=== PATIENT | male | born 1970 | race Caucasian/White ===

== ENCOUNTER → 2019-04-07 10:41 | Outpatient (CLI) | payer BC, SELFPAY ==
[2019-04-07 12:06] LABS: Alanine Aminotransferase 71 U/L (12-78); Albumin Level 4.2 gm/dL (3.4-5.0); Albumin/Globulin Ratio 1.1 (1.1-1.8); Alkaline Phosphatase 86 U/L (46-116); Anion Gap 11.6 mEq/L (5-15); Bilirubin,Total 0.6 mg/dL (0.2-1.0); Blood Urea Nitrogen 15 mg/dL (7-18); Calcium 9.4 mg/dL (8.5-10.1); Carbon Dioxide 31 mmol/L (21.0-32.0); Chloride 100 mmol/L (98-107); Creatinine,Serum 1.24 mg/dL (0.70-1.30); Estimated Glomerular Filt Rate 61 ml/min (>60); GFR (African American) 74 ML/MIN (>60); Globulin 3.8 gm/dl (1.3-3.2); Glucose 89 mg/dL (74-106); Sodium 138 mmol/L (136-145)
[2019-04-07 12:07] LABS: Aspartate Amino Transferase 114 U/L (15-37); Potassium 4.6 mmoL/L (3.5-5.1)
== END ==
PROVIDERS: Visit Provider Nurse Practitioner Family
DX: R79.89 Other specified abnormal findings of blood chemistry (principal); E78.5 Hyperlipidemia, unspecified; I10 Essential (primary) hypertension
CPT/HCPCS: 36415; 80053

== ENCOUNTER → 2019-07-21 08:36 | Outpatient (CLI) | payer BC, SELFPAY ==
[2019-07-21 11:02] LABS: Alanine Aminotransferase 39 U/L (12-78); Albumin Level 4.1 gm/dL (3.4-5.0); Albumin/Globulin Ratio 1.2 (1.1-1.8); Alkaline Phosphatase 74 U/L (46-116); Anion Gap 11.5 mEq/L (5-15); Aspartate Amino Transferase 25 U/L (15-37); Bilirubin,Total 0.9 mg/dL (0.2-1.0); Blood Urea Nitrogen 17 mg/dL (7-18); Calcium 9.2 mg/dL (8.5-10.1); Carbon Dioxide 28 mmol/L (21.0-32.0); Chloride 102 mmol/L (98-107); Cholesterol 205 mg/dL (140-200); Creatinine,Serum 1.29 mg/dL (0.70-1.30); Estimated Glomerular Filt Rate 59 ml/min (>60); GFR (African American) 71 ML/MIN (>60); Globulin 3.3 gm/dl (1.3-3.2); Glucose 106 mg/dL (74-106); HDL Cholesterol 41 mg/dL (27-67); LDL Cholesterol 142 mg/dL (0-130); Potassium 4.5 mmoL/L (3.5-5.1); Sodium 137 mmol/L (136-145); Total Protein,Serum 7.4 gm/dL (6.4-8.2); Triglycerides 109 mg/dL (30-200); VLDL Cholesterol 22 mg/dL (0-40)
== END ==
PROVIDERS: Visit Provider Nurse Practitioner Family
DX: Z00.00 Encounter for general adult medical examination without abnormal findings (principal); E78.5 Hyperlipidemia, unspecified; I10 Essential (primary) hypertension; R07.9 Chest pain, unspecified
CPT/HCPCS: 36415; 80053; 80061; 84443

== ENCOUNTER → 2021-12-02 14:49 | Outpatient (CLI) | payer BC, SELFPAY | PROVIDERS: Visit Provider Nurse Practitioner Family | DX: Z00.00 Encounter for general adult medical examination without abnormal findings (principal); I10 Essential (primary) hypertension; E78.5 Hyperlipidemia, unspecified ==

== ENCOUNTER → 2021-12-03 10:26 | Outpatient (CLI) | payer OTHER, SELFPAY ==
[2021-12-03 11:30] LABS: Chloride 100 mmol/L (98-107); Potassium 4.2 mmoL/L (3.5-5.1); Sodium 139 mmol/L (136-145)
[2021-12-03 11:32] LABS: Blood Urea Nitrogen 25 mg/dl (9-20); Estimated Glomerular Filt Rate 78 ml/min (>60); GFR (African American) 95 ML/MIN (>60)
[2021-12-03 11:33] LABS: Alanine Aminotransferase 54 U/L (12-78); Albumin Level 4.7 g/dl (3.5-5.0); Albumin/Globulin Ratio 1.7 (1.1-1.8); Alkaline Phosphatase 54 U/L (38-126); Anion Gap 15.2 mEq/L (5-15); Aspartate Amino Transferase 60 U/L (17-59); Bilirubin,Total 0.8 mg/dl (0.2-1.3); Calcium 9.4 mg/dl (8.4-10.2); Carbon Dioxide 28 mmol/L (22.0-30.0); Chol/HDL Ratio 3.8 (1-3.5); Cholesterol 159 mg/dl (140-200); Globulin 2.7 g/dL (1.3-3.2); Glucose 121 mg/dl (74-100); HDL Cholesterol 42 mg/dl (40-60); Total Protein,Serum 7.4 g/dl (6.3-8.2); Triglycerides 129 mg/dl (30-150); VLDL Cholesterol 26 mg/dL (0-40)
[2021-12-03 11:44] LABS: Direct LDL Cholesterol 86.25 mg/dL (100-129)
[2021-12-04 16:16] LABS: Hemoglobin A1C 5.9 % (4.0-6.0)
== END ==
PROVIDERS: Visit Provider Nurse Practitioner Family
DX: Z00.00 Encounter for general adult medical examination without abnormal findings (principal); I10 Essential (primary) hypertension; E78.5 Hyperlipidemia, unspecified
CPT/HCPCS: 36415; 80053; 80061; 83036

== ENCOUNTER 2022-05-21 09:47 | Emergency (ER) | payer OTHER, SELFPAY ==
--- NOTE | 2022-05-21 09:47 | PC.NURSE ---
pt ambulatory to ED room 7 with spouse at side for assistance, pt was unsteady on feet. Pt to stretcher without complications. EKG performed and hooked to monitor. IV placed. IGNACIA Herrera; IGNACIA Lea; MINI Cervantes at BS
--- NOTE | 2022-05-21 09:49 | ECG_ITS ---
APPROVED REPORT Exam: Resting ECG HR:114 bpm ECG Measurements Heart Rate 114 AXES HI 160 P 54 QRSd 89 QRS -89 QT 360 T 36 QTc 428 Conclusion SINUS TACHYCARDIA INDETERMINATE AXIS POSSIBLE RIGHT VENTRICULAR CONDUCTION DELAY [RSR (QR) IN V1/V2] ABNORMAL ECG UNCONFIRMED REPORT Electronically signed by : Yakov Vásquez MD 05/22/2022 17:32:41
[2022-05-21 09:52] VITALS: BP 149/94; PULSE 115; RESP 18; TEMP 36.9; O2SAT 99; BMI 28.4
--- NOTE | 2022-05-21 09:52 | XR_ITS ---
FINAL REPORT CLINICAL HISTORY: cp FINDINGS: A single portable view of the chest was obtained. The heart size and pulmonary vascularity are within normal limits. The mediastinum is within normal limits. No acute pulmonary abnormality is identified. The bony thorax is intact. IMPRESSION: No active cardiopulmonary disease. Reviewed, Interpreted and Dictated by Lobito Weiss III, MD Transcribed by Katie Mcknight Authenticated and [facility]
--- NOTE | 2022-05-21 09:53 | PC.NURSE ---
ER at speaking with patient and family
[2022-05-21 09:58] LABS: Basophils # 0.1 K/mm3 (0-0.2); Basophils % 0.4 % (0.1-2.0); Eosinophils # 0.2 K/mm3 (0.0-0.4); Eosinophils % 1.7 % (0.1-12.0); Hemoglobin 17.5 g/dL (14.1-18.0); Lymphocytes # 2.1 K/mm3 (0.7-4.5); Lymphocytes % 18.3 % (10-50); Mean Corpuscular HGB Conc 35.8 g/dL (31.8-35.4); Mean Corpuscular Hemoglobin 31.2 pg (27.0-31.2); Mean Corpuscular Volume 87.2 fl (80-94); Mean Platelet Volume 8.1 fl (7.4-10.4); Monocytes # 0.8 K/mm3 (0.1-1.0); Monocytes % 6.9 % (1.7-9.3); Neutrophils # 8.2 K/mm3 (1.8-7.8); Neutrophils % 72.6 % (37.0-80.0); Platelet Count 224 K/mm3 (142-424); Red Blood Count 5.62 M/mm3 (4.60-6.20); Red Cell Distribution Width 12.3 % (11.5-17.5); White Blood Count 11.3 K/mm3 (4.8-10.8)
--- NOTE | 2022-05-21 09:58 | HMH.EDGENADL ---
ED Disposition Clinical Impression: Nonspecific chest pain Disposition: Home, Self-Care Condition on Discharge: Good Additional Instructions: follow up cardiology tomorrow, return here for worse Prescriptions: Nitroglycerin [Nitrostat 0.4mg SL Tablet] 0.4 mg SL Q5MINP PRN #10 tab PRN Reason: Chest Pain Transmission Status: Pending to [facility] #[id number] Referrals: Provider,Referral, [Referring] - - Critical Care Critical Care Time: No Attestation: On 05/21/22, the high probability of a clinically significant, sudden or life threatening deterioration of the following system(s) required my full and direct attention, intervention and personal management. The time I documented below is in addition to time spent performing reported procedures but includes the following listed in this critical care notation. Medical Decision Making - Medical Records Medical records reviewed: Yes: I reviewed the patient's medical records. - Ricardo Inquiry Pt receiving controlled substance: No Vital Signs: 05/21/22 09:52 05/21/22 10:17 Temperature 98.5 F Temperature Source Oral Pulse Rate 82 Pulse Rate [Left Radial] 115 H Respiratory Rate 18 Blood Pressure 156/95 H Blood Pressure [Right Arm] 149/94 H Blood Pressure Mean 117 Blood Pressure Mean [Right Arm] 112 02 Sat by Pulse Oximetry 99 99 Oxygen Delivery Method Room Air - Lab Data Lab Results 05/21/22 09:12: WBC 11.3 H, RBC 5.62, Hgb 17.5, Hct 49.0, MCV 87.2, MCH 31.2, MCHC 35.8 H, RDW 12.3, Plt Count 224, MPV 8.1, Neut % (Auto) 72.6, Lymph % (Auto) 18.3, Borden % (Auto) 6.9, Eos % (Auto) 1.7, Baso % (Auto) 0.4, Neut # (Auto) 8.2 H, Lymph # (Auto) 2.1, Borden # (Auto) 0.8, Eos # (Auto) 0.2, Baso # (Auto) 0.1 05/21/22 09:12: Sodium 138, Potassium 4.0, Chloride 105, Carbon Dioxide 24, Anion Gap 13.0, BUN 18, Creatinine 1.20, Estimated Creat Clear 89, Estimated GFR 63, Est GFR ( Amer) 76, Glucose 126 H, Calcium 10.3 H, Total Bilirubin 1.0, AST 33, ALT 28, Alkaline Phosphatase 75, Troponin I < 0.01, Total Protein 8.1, Albumin 5.0, Globulin 3.1, Albumin/Globulin Ratio 1.6 05/21/22 09:53: POC Glucose 110 Result diagrams: 05/21/22 09:12 05/21/22 09:12 Orders (Tests/Meds): ED MEDICATIONS Generic Name Dose Route Start Last Admin Trade Name Freq PRN Reason Stop Dose Admin Sodium Chloride 1,000 mls @ 999 mls/hr 05/21/22 10:00 05/21/22 10:09 Sod Chlor 0.9% 1000ml Bag IV 05/21/22 11:00 999 mls/hr .Q1H1M ML Administration Sodium Chloride 10 ml 05/21/22 10:03 Sodium Chloride 0.9% 10ml Vial IV 06/20/22 10:02 NEEDED PRN to Dilute Lorazepam inj Discontinued Medications Generic Name Dose Route Start Last Admin Trade Name Freq PRN Reason Stop Dose Admin Aspirin 324 mg 05/21/22 09:52 05/21/22 10:10 Aspirin 81mg Chewable Tablet PO 05/21/22 09:53 324 mg ONCE ONE Administration Lorazepam 0.5 mg 05/21/22 10:03 05/21/22 10:09 Lorazepam 2mg/Ml Vial IV 05/21/22 10:04 0.5 mg ONCE ONE Administration ORDERS Category Date Time Status CT head/brain wo con Stat Cat Scan 05/21/22 09:59 Taken XR chest portable Stat Exams 05/21/22 09:52 Taken Trop I [Troponin I] Stat Lab 05/21/22 11:15 Ordered EKG Request [ECG Request by /Marietta] Stat Y 05/21/22 10:50 Ordered - ECG Data Tracing #1 I reviewed this ECG and interpreted as documented below: ECG initial impression date: 05/21/22 (ekg by me nsr, qrs narrow, no st elev) - Reevaluation(s) Time: 10:57 (reeval, asking to go home, symptoms rsolved, discussed with card sPA by phone pt agreed to f/u in office tomorrow if sanket free and neg trop x2) General Adult HPI - General Chief complaint: Anxiety Stated complaint: CP Time Seen by Provider: 05/21/22 09:58 Mode of Arrival: Ambulatory Limitations: No Limitations Description of Symptoms (Recalled from ER Triage Doc. by RN): pt to ed c/o left sided numbness and tingling. pt states he waoke up
--- NOTE | 2022-05-21 09:59 | CT_ITS ---
FINAL REPORT CLINICAL HISTORY: tremulous, weight loss, confusion FINDINGS: Axial images of the head were obtained without contrast. Coronal reformatted images were also obtained.This study was performed with techniques to keep radiation doses as low as reasonably achievable (ALARA). Individualized dose reduction techniques using automated exposure control or adjustment of mA and/or kV according to the patient''s size were employed. There is no evidence of intracranial hemorrhage or mass. The ventricular size is within normal limits. There is no evidence of shift of the midline structures. No abnormal extra axial fluid collection is identified. No skull abnormality is seen on the bone window images. IMPRESSION: No acute intracranial abnormality. Reviewed, Interpreted and Dictated by Lobito Weiss III, MD Transcribed by Katie Mcknight Authenticated and [facility]
[2022-05-21 10:01] LABS: POC Glucose,Bedside 110 (70-110)
--- NOTE | 2022-05-21 10:04 | PC.NURSE ---
pt to CT with operating room technologist by yobani
[2022-05-21 10:05] LABS: Chloride 105 mmol/L (98-107)
[2022-05-21 10:06] LABS: Sodium 138 mmol/L (136-145)
[2022-05-21 10:08] LABS: Alanine Aminotransferase 28 U/L (12-78); Aspartate Amino Transferase 33 U/L (17-59); Blood Urea Nitrogen 18 mg/dl (9-20); Creatinine Clearance Estimated 89 mL/min (50-200); Estimated Glomerular Filt Rate 63 ml/min (>60); GFR (African American) 76 ML/MIN (>60)
[2022-05-21 10:09] LABS: Albumin/Globulin Ratio 1.6 (1.1-1.8); Alkaline Phosphatase 75 U/L (38-126); Calcium 10.3 mg/dl (8.4-10.2); Carbon Dioxide 24 mmol/L (22.0-30.0); Globulin 3.1 g/dL (1.3-3.2); Glucose 126 mg/dl (74-100); Total Protein,Serum 8.1 g/dl (6.3-8.2)
[2022-05-21 10:17] VITALS: BP 156/95; PULSE 82; O2SAT 99
[2022-05-21 10:21] LABS: Troponin I < 0.01 ng/ml (0.00-0.034)
--- NOTE | 2022-05-21 10:30 | PC.NURSE ---
pt states ativan helped with his anxiety. feeling improved. family at bedside
--- NOTE | 2022-05-21 10:42 | PC.NURSE ---
ER at speaking with patient; family at BS
--- NOTE | 2022-05-21 10:49 | ECG_ITS ---
APPROVED REPORT Exam: Resting ECG HR:70 bpm ECG Measurements Heart Rate 70 AXES VT 163 P 51 QRSd 109 QRS -16 QT 396 T 30 QTc 416 Conclusion SINUS RHYTHM INDETERMINATE AXIS NORMAL ECG UNCONFIRMED REPORT Electronically signed by : Yakov Vásquez MD 05/22/2022 17:32:31
--- NOTE | 2022-05-21 10:50 | PC.NURSE ---
Dr. Fraser speaking with EMMANUEL Tristan at this time
[2022-05-21 10:51] VITALS: BP 109/71; PULSE 75; RESP 17; O2SAT 96
[2022-05-21 11:17] VITALS: BP 113/72; PULSE 69; RESP 17; O2SAT 97
--- NOTE | 2022-05-21 11:30 | PC.NURSE ---
pt resting family at bedside offers no c/o at present
[2022-05-21 11:37] LABS: Troponin I < 0.01 ng/ml (0.00-0.034)
[2022-05-21 11:58] VITALS: BP 118/60; PULSE 64; RESP 17; TEMP 36.9; O2SAT 98
== END 2022-05-21 11:59 | disposition home or self-care (01) ==
PROVIDERS: Emergency Provider Emergency Medicine; PCP Nurse Practitioner Family
DX: R07.9 Chest pain, unspecified (principal)
CPT/HCPCS: 70450; 71045; 80053; 82962; 84484; 85025; 93005; 96365; 96375; 99284

== ENCOUNTER 2022-09-02 17:47 | Emergency (ER) | payer OTHER, SELFPAY ==
--- NOTE | 2022-09-02 17:45 | ECG_ITS ---
APPROVED REPORT Exam: Resting ECG HR:88 bpm ECG Measurements Heart Rate 88 AXES NE 176 P 48 QRSd 96 QRS -35 QT 350 T 36 QTc 395 Conclusion SINUS RHYTHM LEFT AXIS DEVIATION [QRS AXIS < -30] LOW QRS VOLTAGE IN PRECORDIAL LEADS [QRS DEFLECTION < 1.0 mV IN CHEST LEADS] PATTERN CONSISTENT WITH PULMONARY DISEASE INCOMPLETE RIGHT BUNDLE BRANCH BLOCK [90+ ms QRS DURATION, TERMINAL R IN V1/V2, 40+ ms S IN I/aVL/V4/V5/V6] ABNORMAL ECG UNCONFIRMED REPORT Electronically signed by : Yakov Vásquez MD 09/05/2022 17:44:35
[2022-09-02 17:49] VITALS: BP 124/84; PULSE 79; RESP 18; TEMP 36.7; O2SAT 96; BMI 27.2
--- NOTE | 2022-09-02 17:52 | HMH.EDCP ---
Discharge Plan Disposition Chief Complaint: Chest Pain Prescriptions Prescriptions: No Action nitroglycerin 0.4 MG tablet, sublingual 0.4 mg SL Q5MINP PRN (Reason: Chest Pain) Qty: 10 0RF Rx Instructions: 1 x sublingual every 5 min x3 prn cp losartan 50 mg tablet 50 mg PO DAILY Label Comments: TAKE 1 TABLET BY MOUTH EVERY DAY amlodipine 10 mg tablet 10 mg PO DAILY Label Comments: TAKE 1 TABLET BY MOUTH EVERY DAY rosuvastatin 10 mg tablet 10 mg PO DAILY Label Comments: TAKE 1 TABLET BY MOUTH EVERY DAY Referrals Follow up/Referrals: Provider,Referral, MD [Referring] - See instructions Activity Restrictions/Add. Instructions Additional Instructions/Restrictions: Follow-up with your primary care doctor as scheduled. I highly recommend that you follow-up with a textile machinery sales representative within the next week. Today your lab results did not show any evidence of heart attack. However, I cannot tell you that your heart is healthy. Plasterer Apprentice may want to do a stress test on you to determine the health of your heart. Return to the emergency department immediately if you feel worse in any way. Take all medications as prescribed. Clinical Impressions Clinical Impression: Nonspecific chest pain Instructions Patient Instructions: DI for Atypical Chest Pain Discharge ED Provider: Darryl Moon Chest Pain HPI General Chief Complaint: Chest Pain Stated Complaint: Chest Pain Time Seen by Provider: 09/02/22 17:52 Mode of Arrival: Ambulatory Source of Information: Patient Limitations: No Limitations History of Present Illness HPI narrative: The patient complains of left-sided chest pain that radiates up towards his shoulder for 3 weeks. He states that it got worse over the last 3 days. He denies any other complaints. SAMEER Score for Non-Stemi Age of Patient: 50-59 years old Heart Rate: 70-89 bpm Systolic Blood Pressure: 100-119 mmHg Serum Creatinine: 0.80-1.19 mg/dl CHF Killip Class: I-No CHF Other Risk Factors: None Non-Stemi Risk Score: 100 Related Data Home Medications Medication Instructions Recorded Confirmed amlodipine 10 mg tablet 10 mg PO DAILY Hypertension 09/02/22 09/02/22 losartan 50 mg tablet 50 mg PO DAILY Hypertension 09/02/22 09/02/22 rosuvastatin 10 mg tablet 10 mg PO DAILY High cholesterol 09/02/22 09/02/22 Previous Rx's Medication Instructions Recorded nitroglycerin 0.4 mg sublingual 0.4 mg sublingual Q5MINP PRN Chest 05/21/22 tablet Pain #10 tabs Allergies Allergy/AdvReac Type Severity Reaction Status Date / Time No Known Allergies Allergy Verified 05/21/22 10:00 [facility] Medical History (Updated 09/02/22 @ 19:35 by Darryl Moon MD) Hypertension after donor nephrectomy requiring medication Surgical History (Updated 09/02/22 @ 18:03 by Kamilla Alberts RN) Vasectomy status Social History (Updated 09/02/22 @ 17:59 by Kamilla Alberts RN) Smoking Status: Current every day smoker alcohol intake: former current occupational status: employed Travel in the last 8 weeks: None ROS Obtained: Yes All systems reviewed & no additional complaints except as documented Physical Exam General General appearance: alert and in no apparent distress Head Head exam: atraumatic, normocephalic and normal inspection Eye Eye exam: Present normal appearance, PERRL and EOMI ENT ENT exam: Present normal exam, normal oropharynx, mucous membranes moist, TM's normal bilaterally and normal external ear exam Neck Neck exam: Present normal inspection, full ROM and trachea midline; Absent meningismus or lymphadenopathy Chest Chest inspection: Present normal inspection and symmetric chest wall rise; Absent tenderness Respiratory Respiratory exam: Present normal lung sounds bilaterally; Absent respiratory distress Cardiovascular Cardiovascular exam: Present regular rate and normal rhythm; Absent JVD Abdominal Exam Abdominal exam: Present so
[2022-09-02 17:57] VITALS: PULSE 79
[2022-09-02 18:00] VITALS: BP 118/75; PULSE 79; RESP 18; O2SAT 96
--- NOTE | 2022-09-02 18:08 | XR_ITS ---
PROCEDURE INFORMATION: Exam: XR Chest Exam date and time: 09/02/2022 6:20 PM Age: 52 years old Clinical indication: Pain; Angina and cough and shortness of breath; Chest pressure; Patient HX: SOA, cp, tightness w cough x weeks, worsened x last 5 days. ; Additional info: Smoker, shielded TECHNIQUE: Imaging protocol: Radiologic exam of the chest. Views: 2 views. COMPARISON: CR XR CHEST PORTABLE 05/21/2022 9:56 AM FINDINGS: Lungs: Unremarkable. No consolidation. Pleural spaces: Unremarkable. No pleural effusion. No pneumothorax. Heart/Mediastinum: Unremarkable. No cardiomegaly. Bones/joints: Unremarkable. IMPRESSION: No acute findings.
[2022-09-02 18:15] LABS: Chloride 98 mmol/L (98-107)
[2022-09-02 18:16] LABS: Potassium 4.2 mmoL/L (3.5-5.1); Sodium 139 mmol/L (136-145)
[2022-09-02 18:17] LABS: Basophils # 0.1 K/mm3 (0-0.2); Basophils % 1.3 % (0.1-2.0); Eosinophils # 0.3 K/mm3 (0.0-0.4); Eosinophils % 2.6 % (0.1-12.0); Hematocrit 49.2 % (42.0-52.0); Hemoglobin 16.3 g/dL (14.1-18.0); Lymphocytes % 30.9 % (10-50); Mean Corpuscular HGB Conc 33.2 g/dL (31.8-35.4); Mean Corpuscular Hemoglobin 30.9 pg (27.0-31.2); Mean Corpuscular Volume 92.9 fl (80-94); Mean Platelet Volume 8.6 fl (7.4-10.4); Monocytes # 0.7 K/mm3 (0.1-1.0); Monocytes % 6.9 % (1.7-9.3); Neutrophils # 5.6 K/mm3 (1.8-7.8); Neutrophils % 58.3 % (37.0-80.0); Platelet Count 239 K/mm3 (142-424); Red Blood Count 5.29 M/mm3 (4.60-6.20); Red Cell Distribution Width 13.2 % (11.5-17.5); White Blood Count 9.6 K/mm3 (4.8-10.8)
[2022-09-02 18:18] LABS: Alanine Aminotransferase 21 U/L (12-78); Aspartate Amino Transferase 31 U/L (17-59); Blood Urea Nitrogen 17 mg/dl (9-20); Creatinine Clearance Estimated 103 mL/min (50-200); Estimated Glomerular Filt Rate 78 ml/min (>60); GFR (African American) 94 ML/MIN (>60)
[2022-09-02 18:19] LABS: Alkaline Phosphatase 83 U/L (38-126); Bilirubin,Total 0.7 mg/dl (0.2-1.3); Total Protein,Serum 8.1 g/dl (6.3-8.2)
[2022-09-02 18:20] LABS: Anion Gap 15.2 mEq/L (5-15); Calcium 9.5 mg/dl (8.4-10.2); Carbon Dioxide 30 mmol/L (22.0-30.0); Glucose 89 mg/dl (74-100)
[2022-09-02 18:23] VITALS: BP 107/73; PULSE 90; RESP 18; O2SAT 95
[2022-09-02 18:24] LABS: Bilirubin,Unconjugated 0.6 mg/dL (0.0-1.1)
--- NOTE | 2022-09-02 18:28 | PC.NURSE ---
BP 118/74 PT CHEST PAIN 5/10- NITRO SL ADMINISTERED. CP 1/10 AFTER 1 SL NITRO. BP 107/73
[2022-09-02 18:34] LABS: Troponin I < 0.01 ng/ml (0.00-0.034)
[2022-09-02 18:41] LABS: Amylase 112 U/L (30-110); Lipase 138 U/L (23-300)
[2022-09-02 19:00] VITALS: BP 103/68; PULSE 87; RESP 16; O2SAT 97
[2022-09-02 19:12] LABS: Bilirubin,Direct 0.1 mg/dl (0.0-0.4); Bilirubin,Indirect 0.6 mg/dL (0.0-0.9)
[2022-09-02 19:43] VITALS: BP 117/86; PULSE 81; RESP 16; TEMP 36.7; O2SAT 95
--- NOTE | 2022-09-02 19:46 | PC.NURSE ---
PT REPORTS THAT HE HAS AN APPOINTMENT WITH HIS PRIMARY CARE PROVIDER ON WEDNESDAY FOR ADDITIONAL FOLLOW UP
--- NOTE | 2022-09-02 19:46 | PC.NURSE ---
PT DENIES ALL PAIN AT DISCHARGE.
== END 2022-09-02 19:47 | disposition home or self-care (01) ==
PROVIDERS: Emergency Provider Emergency Medicine; PCP Internal Medicine Adolescent Medicine
DX: R07.89 Other chest pain (principal); M25.519 Pain in unspecified shoulder; I10 Essential (primary) hypertension; I45.10 Unspecified right bundle-branch block; F17.210 Nicotine dependence, cigarettes, uncomplicated; Z79.899 Other long term (current) drug therapy
CPT/HCPCS: 71046; 80048; 80076; 82150; 83690; 84484; 85025; 93005; 96361; 96374; 99284; J2405

== ENCOUNTER → 2022-09-16 07:16 | Outpatient (CLI) | payer OTHER, SELFPAY | PROVIDERS: PCP Internal Medicine Adolescent Medicine; Visit Provider Nurse Practitioner Family | DX: R06.02 Shortness of breath (principal); R07.9 Chest pain, unspecified | CPT/HCPCS: 78452; 93017; 95806; A9502 ==

== ENCOUNTER → 2022-10-16 09:36 | Outpatient (CLI) | payer OTHER, SELFPAY | PROVIDERS: PCP Internal Medicine Adolescent Medicine; Visit Provider Nurse Practitioner Family | DX: R06.02 Shortness of breath (principal) | CPT/HCPCS: 93306 ==

== ENCOUNTER → 2023-06-03 15:10 | Outpatient (CLI) | payer OTHER, SELFPAY ==
--- NOTE | 2023-06-03 15:14 | XR_ITS ---
FINAL REPORT CLINICAL HISTORY: Lt elbow pain FINDINGS: LEFT ELBOW SERIES Three views of the left elbow were obtained. There is no acute fracture or dislocation. The joint spaces are preserved. There is a chronic calcification adjacent to the lateral humeral epicondyle. There is marked soft tissue swelling overlying the olecranon, which may represent olecranon bursitis. IMPRESSION: No acute bony abnormality. Soft tissue swelling overlying the olecranon, likely olecranon bursitis. Reviewed, Interpreted and Dictated by Lobito Weiss III, MD Transcribed by Beka Hussein Authenticated and [facility]
== END ==
PROVIDERS: PCP Nurse Practitioner Family; Visit Provider Orthopaedic Surgery
DX: M25.522 Pain in left elbow (principal)
CPT/HCPCS: 73080

== ENCOUNTER → 2023-06-07 15:07 | Outpatient (CLI) | payer OTHER, SELFPAY ==
--- NOTE | 2023-06-07 15:15 | ECG_ITS ---
APPROVED REPORT Exam: Resting ECG HR:76 bpm ECG Measurements Heart Rate 76 AXES AK 177 P 50 QRSd 112 QRS -39 QT 378 T -2 QTc 409 Conclusion SINUS RHYTHM LAD INCOMPLETE RIGHT BUNDLE BRANCH BLOCK [90+ ms QRS DURATION, TERMINAL R IN V1/V2, 40+ ms S IN I/aVL/V4/V5/V6] ABNORMAL ECG UNCONFIRMED REPORT Electronically signed by : Yakov Vásquez MD 06/08/2023 07:56:46
--- NOTE | 2023-06-07 15:23 | XR_ITS ---
FINAL REPORT CLINICAL HISTORY: pre op, hx htn COMPARISON: 05/21/2022 FINDINGS: Two views of the chest were obtained. The heart size and pulmonary vascularity are within normal limits. The mediastinum is normal. No acute pulmonary abnormality is identified. There is no pneumothorax. The bony thorax is intact. IMPRESSION: No active cardiopulmonary disease. Reviewed, Interpreted and Dictated by Lobito Weiss III, MD Transcribed by Beka Hussein Authenticated and [facility]
[2023-06-07 16:01] LABS: Basophils % 0.4 % (0.1-2.0); Eosinophils # 0.3 K/mm3 (0.0-0.4); Eosinophils % 3.7 % (0.1-12.0); Hematocrit 47.5 % (42.0-52.0); Hemoglobin 15.5 g/dL (14.1-18.0); Lymphocytes # 2.5 K/mm3 (0.7-4.5); Mean Corpuscular HGB Conc 32.6 g/dL (31.8-35.4); Mean Corpuscular Hemoglobin 30.7 pg (27.0-31.2); Mean Corpuscular Volume 94.4 fl (80-94); Mean Platelet Volume 8.6 fl (7.4-10.4); Monocytes # 0.6 K/mm3 (0.1-1.0); Monocytes % 6.5 % (1.7-9.3); Neutrophils # 5.4 K/mm3 (1.8-7.8); Neutrophils % 61.5 % (37.0-80.0); Platelet Count 219 K/mm3 (142-424); Red Blood Count 5.03 M/mm3 (4.60-6.20); Red Cell Distribution Width 12.5 % (11.5-17.5); White Blood Count 8.9 K/mm3 (4.8-10.8)
[2023-06-07 16:35] LABS: Alanine Aminotransferase 31 U/L (12-78); Albumin Level 4.9 g/dl (3.5-5.0); Albumin/Globulin Ratio 1.9 (1.1-1.8); Alkaline Phosphatase 77 U/L (38-126); Aspartate Amino Transferase 36 U/L (17-59); Bilirubin,Total 0.5 mg/dl (0.2-1.3); Blood Urea Nitrogen 19 mg/dl (9-20); Calcium 9.7 mg/dl (8.4-10.2); Carbon Dioxide 29 mmol/L (22.0-30.0); Chloride 102 mmol/L (98-107); Estimated Glomerular Filt Rate 78 ml/min (>60); GFR (African American) 94 ML/MIN (>60); Globulin 2.6 g/dL (1.3-3.2); Glucose 86 mg/dl (74-100); Sodium 140 mmol/L (136-145); Total Protein,Serum 7.5 g/dl (6.3-8.2)
== END ==
PROVIDERS: PCP Nurse Practitioner Family; Visit Provider Orthopaedic Surgery
DX: Z01.818 Encounter for other preprocedural examination (principal); M70.22 Olecranon bursitis, left elbow
CPT/HCPCS: 36415; 71046; 80053; 85025; 93005

== ENCOUNTER 2023-06-14 07:02 | Day surgery (SDC) | payer OTHER, SELFPAY ==
[2023-06-14] VITALS (9 sets, daily range): BP systolic 116–147; BP diastolic 72–98; PULSE 71–76; RESP 14–18; TEMP 36.1–36.3; O2SAT 92–96; BMI 30.1
--- NOTE | 2023-06-14 08:25 | EXP.ANES.CKL ---
[facility] Disclaimer: The information contained in this section may have been updated after the patient was seen, as this information can be updated by other users. Medical History Diastolic dysfunction HLD (hyperlipidemia) HTN (hypertension) Hypertension after donor nephrectomy requiring medication Surgical History Vasectomy status Family History (Updated 06/14/23 @ 07:31 by Clifford Wade RN) Other Family history of heart disease Social History (Updated 06/14/23 @ 07:32 by Clifford Wade RN) Smoking Status: Former smoker alcohol intake: former substance use type: denies use current occupational status: employed Travel in the last 8 weeks: None [facility] Anesthesia Checklist Patient Identification Patient Identification: Verbal (Name & ) Structural Data Admitted From: Home Planned Operative Procedure/s: l elbow bursectomy Consent for Planned Operative Procedure(s) Verified: Yes NPO Status Verified Time NPO: 00:00 Additional verifications Anesthesia Reactions: No Hx Blood Transfusions: No Blood Transfusion Reaction: No Airway Assessment C-Spine Mobility Assessed: Yes TMJ Mobility Assessed: Yes Dentition: Good Dentition Neurological Assessment Level of Consciousness: Awake, Alert and Appropriate Anesthesia Plan Anesthesia Risk discussed: Yes Anesthesia Plan: Verified ASA Class: II Anesthesia Type: General
--- NOTE | 2023-06-14 09:29 | EXP.OP.NOTE ---
Date of procedure: 06/14/23 Pre-op Diagnosis:: Left elbow nonseptic olecranon bursitis Post-op Diagnosis:: Same Procedure performed:: Excision olecranon bursa left elbow Surgeon:: Alonzo Guzman DO GRAV[employer] SET UP OPERATOR:: Other Anesthesia: GETA Estimated blood loss (mL): 0 Operative findings:: Nonseptic olecranon bursitis Operative note:: Patient is identified preoperatively. Left elbow marked yes my initial. Transferred operative suite. Placed upon operating bed general anesthesia was administered. Left upper extremities and prepped and draped normal sterile fashion. Once prepped and draped final operative timeout performed to identify proper patient procedure and extremity. Everyone involved the case agreed. No count indication beginning. Did receive preoperative antibiotics. Marking pen was used to make plan incision over the olecranon bursa. Esmarch was used to exsanguinate extremity pneumatic tourniquet inflated 250 mmHg. Skin knife is used to incise the skin and. Careful dissection was taken down the scissors to identify the olecranon bursal sac. Careful dissection was taken around the bursal sac and it was excised. It was full of nonseptic yellowish fluid. Once the bursa sac was excised copious irrigation wound performed deep layers closed with Vicryl stitch subcutaneous Vicryl stitch and skin closed with nylon stitch sterile dressing placed with Paulo bandage wrap from mid arm to hand. Patient waken anesthesia taken recovery stable condition. Condition: stable Disposition: PACU Complications:: None apparent
--- NOTE | 2023-06-14 09:31 | EXP.ANES.I ---
[facility] Anesthesia Record Part I Anesthesia Record I Intake, IV Amount: 700 Estimated blood loss (mL): 2 Urine output (mL): 0 Blood Products used (#): none Blood Pressure: 147/98 SaO2: 92 Pulse Rate: 72 Respiratory Rate: 16 Temperature: 97 F Patient is:: Drowsy and Stable Stable to PACU at:: 09:28
[2023-06-15 07:24] VITALS: BP 131/90; PULSE 73; TEMP 36.3
--- NOTE | 2023-06-15 07:24 | EXP.ANES.II ---
[facility] Anesthesia Record Part II Anesthesia Record Part II Discharge Time: 09:58 Destination: Surgical Day Care (OP Surgery) PACU nurse assessment reviewed?: Yes Patient Condition:: Good Anesthesia Complications:: None Swallowing reflex intact?: Yes Cyanosis?: No Blood Pressure: 131/90 Pulse Rate: 73 Temperature: 97.4 F Mental Status: Alert & Oriented Pain level:: 0 Nausea and/or vomitting:: None Intake, IV Amount: 0
== END 2023-06-14 10:35 | disposition home or self-care (01) ==
PROVIDERS: PCP Nurse Practitioner Family; Visit Provider Orthopaedic Surgery
PROC: (CPT 24105; principal; 2023-06-14 08:45)
DX: M70.22 Olecranon bursitis, left elbow (principal); E78.5 Hyperlipidemia, unspecified; I10 Essential (primary) hypertension; F17.200 Nicotine dependence, unspecified, uncomplicated
CPT/HCPCS: 24105; 96374; J2405

== ENCOUNTER 2024-04-08 07:49 | Outpatient (CLI) | payer OTHER, SELFPAY ==
[2024-04-08 08:19] LABS: Basophils # 0.1 K/mm3 (0-0.2); Basophils % 1.1 % (0.1-2.0); Eosinophils # 0.1 K/mm3 (0.0-0.4); Eosinophils % 0.5 % (0.1-12.0); Hematocrit 48.8 % (42.0-52.0); Hemoglobin 15.9 g/dL (14.1-18.0); Lymphocytes # 1.2 K/mm3 (0.7-4.5); Lymphocytes % 10.4 % (10-50); Mean Corpuscular HGB Conc 32.5 g/dL (31.8-35.4); Mean Corpuscular Hemoglobin 31.1 pg (27.0-31.2); Mean Corpuscular Volume 95.6 fl (80-94); Mean Platelet Volume 8.5 fl (7.4-10.4); Monocytes # 0.9 K/mm3 (0.1-1.0); Monocytes % 7.5 % (1.7-9.3); Neutrophils # 9.6 K/mm3 (1.8-7.8); Neutrophils % 80.5 % (37.0-80.0); Platelet Count 224 K/mm3 (142-424); Red Blood Count 5.11 M/mm3 (4.60-6.20); White Blood Count 11.9 K/mm3 (4.8-10.8)
[2024-04-08 08:52] LABS: Alanine Aminotransferase 35 U/L (12-78); Albumin Level 4.7 g/dl (3.5-5.0); Albumin/Globulin Ratio 1.7 (1.1-1.8); Alkaline Phosphatase 95 U/L (38-126); Anion Gap 14.5 mEq/L (5-15); Aspartate Amino Transferase 30 U/L (17-59); Bilirubin,Total 0.5 mg/dl (0.2-1.3); Blood Urea Nitrogen 24 mg/dl (9-20); Calcium 9.6 mg/dl (8.4-10.2); Carbon Dioxide 26 mmol/L (22.0-30.0); Chloride 106 mmol/L (98-107); Chol/HDL Ratio 3.5 (1-3.5); Cholesterol 191 mg/dl (140-200); Estimated Glomerular Filt Rate 77 ml/min (>60); GFR (African American) 94 ML/MIN (>60); Globulin 2.8 g/dL (1.3-3.2); Glucose 95 mg/dl (74-100); HDL Cholesterol 55 mg/dl (40-60); Potassium 4.5 mmoL/L (3.5-5.1); Sodium 142 mmol/L (136-145); Total Protein,Serum 7.5 g/dl (6.3-8.2); Triglycerides 96 mg/dl (30-150); VLDL Cholesterol 19 mg/dL (0-40)
[2024-04-08 09:03] LABS: Direct LDL Cholesterol 113.25 mg/dL (100-129)
[2024-04-08 09:22] LABS: Thyroid Stimulating Hormone 0.45 uIU/mL (0.465-4.68)
== END 2024-04-08 23:59 | disposition home or self-care (01) ==
LOC: LAB 07:52
PROVIDERS: PCP Nurse Practitioner Family; Visit Provider Nurse Practitioner Family
DX: R73.09 Other abnormal glucose (principal); R53.83 Other fatigue; Z79.899 Other long term (current) drug therapy
CPT/HCPCS: 36415; 80053; 80061; 83036; 84443; 85025